=== PATIENT | female | born 2000 | race African-American/Black ===

== ENCOUNTER 2025-06-21 14:08 | Emergency (ER) | payer OTHER ==
[~2025-06-21] VITALS: Ht 157.5 cm; Wt 43.5 kg
[2025-06-21 15:12] LABS: KETONE, URINE AUTO RFX NEGATIVE (NEGATIVE); LEUKOCYTE ESTERASE UR AUTO RFX 3+ (NEGATIVE); MUCUS, URINE RFX SMALL (NEGATIVE); NITRITE, URINE AUTO RFX NEGATIVE (NEGATIVE); RBC, URINE AUTO RFX TNTC /HPF (0-3); SQUAM EPITHELIAL CELL UR AURFX 0 /HPF (0-6); WBC, URINE AUTO RFX 170 /HPF (0-3)
[2025-06-21 16:58] LABS: Trichomonas vaginalis (AMP) NOT DETECTED (NEGATIVE)
[2025-06-21 17:20] LABS: GC DNA AMPLIFICATION NEGATIVE (NEGATIVE)
[2025-06-21 18:10] LABS: BASO # 0.0 10^3/uL (0.0-0.2); BASO % 0.1 % (0.0-1.0); EOS # 0.1 10^3/uL (0.0-0.5); EOS % 1.5 % (0.0-3.0); LYMPH # 2.7 10^3/uL (1.5-5.0); LYMPH % 36.0 % (24.0-44.0); MONO # 0.5 10^3/uL (0.0-0.8); MONO % 6.8 % (2.0-8.0); NEUTROPHILS # 4.2 10^3/uL (1.5-8.5); NEUTROPHILS % 55.3 % (36.0-66.0); PLATELET COUNT, AUTOMATED 191 10^3/uL (150-450)
[2025-06-21 18:19] LABS: ERYTHROCYTE SEDIMENTATION RATE 23 mm/hr (0-20)
[2025-06-21 18:26] LABS: C REACTIVE PROTEIN QUANTITATIV < 0.50 MG/DL (<1.0); CALCIUM LEVEL 9.7 MG/DL (8.5-10.1); CARBON DIOXIDE LEVEL 26 MMOL/L (20-31); CHLORIDE LEVEL 104 MMOL/L (98-107); CREATININE FOR GFR 0.69 MG/DL (0.55-1.30); GLOMERULAR FILTRATION RATE > 90.0 (>60); POTASSIUM SERUM 3.9 MMOL/L (3.5-5.1); SODIUM LEVEL 136 MMOL/L (136-145)
[2025-06-21 18:53] VITALS: BP 124/63; TEMP 98.6; O2SAT 100
[2025-06-21] MEDS ORDERED: ISOVUE-370 76% 100 ML VIAL As Ordered ONE (19:59)
[2025-06-21] MEDS ORDERED: METR-265 PO (22:42)
[2025-06-21] MEDS ORDERED: ACID1CAP5 PO (22:43)
== END 2025-06-21 23:00 | disposition home or self-care (01) ==
LOC: M ED 14:46
DX: N76.0 Acute vaginitis (principal)
CPT/HCPCS: 74177; 76830; 76856; 80048; 81001; 85025; 85652; 86140; 87086; 87210; 87661; 87810; 87850; 99283; Q9967